=== PATIENT | male | born 1960 | race Caucasian/White ===

== ENCOUNTER 2018-05-18 10:00 | Day surgery (SDC) | payer OTHER ==
[~2018-05-18 10:00] MED LIST: CEFAZOLIN 1 GM INJ; CEFAZOLIN 2 GM/50 ML (PMX) 50 ML IVPB; DEXAMETHASONE 4 MG/ML 5 ML INJ; LACTATED RINGER'S 1,000 ML IV*; ONDANSETRON 4 MG INJ; SEVOFLURANE 15 MIN; SUCCINYLCHOLINE CHLORIDE 100 MG/5 ML SYG IV
[2018-05-18] MEDS ORDERED: LIDOCAINE 1% (MPF) 10 ML INJ (12:57)
[2018-05-18] MEDS ORDERED: LIDOCAINE 1% (MDV) 20 ML INJ (13:02)
[2018-05-18] MEDS ORDERED: ROCURONIUM 50 MG INJ (13:17)
[2018-05-18] MEDS ORDERED: NEOSTIGMINE 3 MG/3 ML SYRINGE (13:17)
[2018-05-18] MEDS ORDERED: GLYCOPYRROLATE 0.4 MG INJ (13:17)
[2018-05-18] MEDS ORDERED: LIDOCAINE 2% (SDV) 5 ML INJ (13:17)
[2018-05-18] MEDS ORDERED: PROPOFOL 20 ML (13:17)
[2018-05-18] MEDS ORDERED: MIDAZOLAM 1 MG/ML 2 ML INJ (13:18)
[2018-05-18] MEDS ORDERED: FENTAnyl 50 MCG/ML VIAL (13:18)
[2018-05-18] MEDS: BUPIVACAINE 0.25% (MPF) 30 ML INJ (14:05)
[2018-05-18] MEDS ORDERED: HYDROmorphONE 1 MG/5 ML IV SYRINGE IV ×2 (15:21→15:30)
[2018-05-18] MEDS: HYDROmorphONE 1 MG/5 ML IV SYRINGE IV ×2 (15:27→15:33)
[2018-05-18] MEDS: ONDANSETRON 4 MG INJ IV (15:29)
[2018-05-18] MEDS ORDERED: LABETALOL HCL 20MG INJ IV (15:30)
[2018-05-18] MEDS ORDERED: FENTAnyl 50 MCG/ML VIAL IV ×3 (15:30)
[2018-05-18] MEDS ORDERED: OXYCODONE/ACETAMINOPHEN (5/325) TAB PO ×2 (15:30)
[2018-05-18] MEDS ORDERED: MEPERIDINE 25 MG INJ IV (15:30)
[2018-05-18] MEDS ORDERED: DIPHENHYDRAMINE 50 MG INJ IV (15:30)
== END 2018-05-18 16:49 | disposition home or self-care (01) ==
LOC: SDS 10:00
DX: S62.612D Displaced fracture of proximal phalanx of right middle finger, subsequent encounter for fracture with routine healing (principal); X58.XXXD Exposure to other specified factors, subsequent encounter; E11.9 Type 2 diabetes mellitus without complications; I10 Essential (primary) hypertension; E78.5 Hyperlipidemia, unspecified; I25.10 Atherosclerotic heart disease of native coronary artery without angina pectoris
CPT/HCPCS: 26735; 73130-RT; 82962

== ENCOUNTER 2018-06-21 15:17 | Day surgery (SDC) | payer OTHER ==
[~2018-06-21 15:17] MED LIST changes: -CEFAZOLIN 1 GM INJ; -DEXAMETHASONE 4 MG/ML 5 ML INJ; -ONDANSETRON 4 MG INJ; -SEVOFLURANE 15 MIN; -SUCCINYLCHOLINE CHLORIDE 100 MG/5 ML SYG IV
[2018-06-21 16:17] LABS: ADD MAN DIFF? NO
[2018-06-21 16:18] LABS: WHITE BLOOD COUNT 6.2 10^3/ul (4.8-10.8)
[2018-06-21 16:18] LABS: BASOPHIL # 0.1 10^3/ul (0.0-0.1); BASOPHILS % 0.8 % (0.0-2.0); EOSINOPHILS # 0.1 10^3/ul (0.0-0.5); EOSINOPHILS % 1.6 % (0.0-7.0); HEMATOCRIT 41.4 % (42.0-52.0); LYMPHOCYTES # 2.3 10^3/ul (0.8-2.9); LYMPHOCYTES % 36.7 % (15.0-51.0); MEAN CORPUSCULAR HEMOGLOBIN 34.1 pg (29.0-33.0); MEAN CORPUSCULAR HGB CONC 36.2 g/dl (32.0-37.0); MEAN CORPUSCULAR VOLUME 94.1 fl (82.0-101.0); MEAN PLATELET VOLUME 9.6 fl (7.4-10.4); MONOCYTE # 0.7 10^3/ul (0.3-0.9); MONOCYTES % 11.2 % (0.0-11.0); NEUTROPHIL # 3.1 10^3/ul (1.6-7.5); NEUTROPHILS % 49.4 % (39.0-77.0); PLATELET COUNT 133 10^3/UL (140-415); RED CELL DISTRIBUTION WIDTH 12.2 % (11.5-14.5)
[2018-06-21 16:41] LABS: ANION GAP 9 (5-13); BLOOD UREA NITROGEN 11 mg/dl (7-20); CARBON DIOXIDE 26 mmol/L (21-31); CHLORIDE 105 mmol/L (97-110); Estimated GFR > 60 mL/min (>60); GLUCOSE 141 mg/dl (70-220); POTASSIUM 3.9 mmol/L (3.5-5.1); SODIUM 140 mmol/L (135-144)
[2018-06-21 16:44] LABS: INR 1.02; PROTIME 13.5 Sec (11.9-14.9); PT RATIO 1.1
[2018-06-21 16:45] LABS: PARTIAL THROMBOPLASTIN TIME 32.6 Sec (23.0-35.0)
[2018-06-21] MEDS ORDERED: CEFAZOLIN 1 GM INJ (17:47)
[2018-06-21] MEDS ORDERED: MIDAZOLAM 1 MG/ML 2 ML INJ (17:47)
[2018-06-21] MEDS ORDERED: FENTAnyl 50 MCG/ML VIAL (18:01)
[2018-06-21] MEDS: LIDOCAINE 1% (MPF) 30 ML INJ (18:26)
[2018-06-21] MEDS: BUPIVACAINE 0.25% (MPF) 30 ML INJ (18:26)
[2018-06-21] MEDS ORDERED: METOCLOPRAMIDE 10 MG INJ IV (18:30)
[2018-06-21] MEDS ORDERED: LABETALOL HCL 20MG INJ IV (18:30)
[2018-06-21] MEDS ORDERED: hydrALAzine 20 MG INJ IV (18:30)
[2018-06-21] MEDS ORDERED: FENTAnyl 50 MCG/ML VIAL IV ×2 (18:30)
[2018-06-21] MEDS ORDERED: ONDANSETRON 4 MG INJ IV (18:30)
[2018-06-21 18:34] LABS: PROSTATE SPECIFIC ANTIGEN 0.5 ng/ml (0.0-4.0)
== END 2018-06-22 12:43 | disposition home or self-care (01) ==
LOC: SDS 15:17
DX: Z47.2 Encounter for removal of internal fixation device (principal); I10 Essential (primary) hypertension; E11.9 Type 2 diabetes mellitus without complications
CPT/HCPCS: 20680; 71045; 73120-52; 80048; 82962; 84153; 84154; 85025; 85610; 85730; 88300; 93005